=== PATIENT | female | born 1975 | race Hispanic/Latino ===

== ENCOUNTER 2016-12-01 01:38 | Emergency (ER) | payer OTHER ==
[2016-12-01] MEDS ORDERED: Albuterol-Ipratrop 3 mg / 0.5 (3 ml) UD IH STA ×2 (03:03→03:04)
[2016-12-01 03:04] VITALS: O2SAT 98
[2016-12-01] MEDS ORDERED: Albuterol-Ipratrop 3 mg / 0.5 (3 ml) UD ONE (03:07)
--- NOTE | 2016-12-01 03:07 | ED PDOC ---
HPI: CCC, URI, Sore Throat Time Seen by Provider: 12/01/16 02:51 Chief Complaint (Nursing): Fever Chief Complaint (Provider): fever History Per: Patient History/Exam Limitations: no limitations Onset/Duration Of Symptoms: Days (2) Location Of Pain: Ear(s), Throat Associated Symptoms: Fever, Sore Throat, Cough Ear Symptoms: Right: Ear Pain Additional History Per: Patient Additional Complaint(s): 40 y/o female presents with fever, tmax 104, x 2 days. Associated nonproductive cough, sore throat, right ear pressure. Patient notes cough becoming more persistent, now with post-tussive vomiting. Past Medical History Reviewed: Historical Data, Nursing Documentation, Vital Signs Vital Signs: Last Vital Signs Temp 99.1 F 12/01/16 05:06 Pulse 97 H 12/01/16 05:06 Resp 21 12/01/16 05:06 BP 106/70 12/01/16 05:06 Pulse Ox 98 12/01/16 05:06 - Medical History PMH: Anemia, Anxiety, Back Problems (muscle spasms), Depression, Gastritis Denies: Chronic Kidney Disease - Family History Family History: States: Unknown Family Hx - Living Arrangements Living Arrangements: With Family - Social History Current smoker - smoking cessation education provided: Yes Alcohol: None Drugs: Denies - Home Medications Home Medications: Ambulatory Orders Medication Instructions Recorded DiphenhydrAMINE [Benadryl] 25 mg PO TID #30 cap 01/02/16 Hydrocortisone 2.5% 1 applic EXT BID #1 oint 01/02/16 Ibuprofen [Motrin Tab] 600 mg PO TID #30 tab 01/02/16 Albuterol HFA [Ventolin HFA 90 1 puff IH Q4 PRN #1 inh 12/01/16 mcg/actuation (8 g)] Azithromycin [Zithromax] 250 mg PO DAILY #4 tab 12/01/16 Promethazine HCl/Codeine 5 ml PO Q8 PRN #100 ml 12/01/16 [Prometh-Codein 6.25-10 mg/5 ml] - Allergies Allergies/Adverse Reactions: Allergies Allergy/AdvReac Type Severity Reaction Status Date / Time Penicillins Allergy REDNESS Verified 12/01/16 02:52 barbecue sauce Allergy RASH Uncoded 12/01/16 02:52 tuna pasta salad Allergy RASH Uncoded 12/01/16 02:52 Review of Systems ROS Statement: Except As Marked, All Systems Reviewed And Found Negative Constitutional: Positive for: Fever ENT: Positive for: Ear Pain, Throat Pain Respiratory: Positive for: Cough Physical Exam - Reviewed Nursing Documentation Reviewed: Yes Vital Signs Reviewed: Yes - Physical Exam Appears: Positive for: Well, Non-toxic, No Acute Distress Head Exam: Positive for: ATRAUMATIC, NORMAL INSPECTION, NORMOCEPHALIC Skin: Positive for: Normal Color Eye Exam: Positive for: Normal appearance ENT: Positive for: Pharyngeal Erythema Cardiovascular/Chest: Positive for: Regular Rate, Rhythm Respiratory: Positive for: Normal Breath Sounds Gastrointestinal/Abdominal: Positive for: Normal Exam Extremity: Positive for: Normal ROM Neurologic/Psych: Positive for: Alert, Oriented - ECG O2 Sat by Pulse Oximetry: 98 Pulse Ox Interpretation: Normal - Radiology X-Ray: Viewed By Ne X-Ray Interpretation: Infiltrates (rll) - Progress ED Course And Treament: flu, strep, chest xray, duonebs Patient educated on findings, Zithromax dose and Promethazine codeine dose given in ED. Patient discharged with rx zithromax, promethazine with codeine, albuterol. Advised to continue tylenol/ibuprofen PRN fever. Rest. Fluids. Follow up PMD 2-3 days. Return to ED for worsening/concerning symptoms. Disposition - Clinical Impression Clinical Impression: Pneumonia - Patient ED Disposition Is Patient to be Admitted: No Counseled Patient/Family Regarding: Studies Performed, Diagnosis, Need For Followup, Rx Given - Disposition Disposition: Routine/Home Disposition Time: 04:48 Condition: IMPROVED Additional Instructions: Follow up with primary doctor in 2-3 days. Take medication as directed. Take Tylenol/Ibuprofen as directed, as needed for fever. Drink plenty of fluids. Rest. Return to ED for worsening/concerning symptoms. Prescriptions: Albuterol HFA [Ventolin HFA 90 mcg/actuation (8 g)] 1 puff IH Q4 PRN #1 inh PRN Reason: Wheezing Azithromycin [Zithromax] 250 mg PO DAILY #4 tab Promethazine HCl/Codeine [Prometh-Codein 6.25-10 mg/5 ml] 5 ml PO Q8 PRN #100 ml PRN Reason: Cough Instructions: Community Acquired Pneumonia (ED)
[2016-12-01] MEDS ORDERED: Promethazine/Cod 6.25mg-10mg/5ml Syr UD PO STA (04:34)
[2016-12-01 05:07] VITALS: BP 106/70; PULSE 97; RESP 21; TEMP 99.1
--- NOTE | 2016-12-01 08:39 | RAD ---
HISTORY: fever, cough COMPARISON: 12/30/2015 TECHNIQUE: Chest PA and lateral FINDINGS: LUNGS: New right basilar opacity. In the lateral view, it is not clearly identifiable. Nevertheless, this most likely represents a lower lobe infiltrate. Followup is advised. No other abnormal pulmonary opacity. PLEURA: No significant pleural effusion identified. No pneumothorax apparent. CARDIOVASCULAR: Normal. OSSEOUS STRUCTURES: No significant abnormalities. VISUALIZED UPPER ABDOMEN: Normal. OTHER FINDINGS: None. IMPRESSION: Right basilar infiltrate. Followup advised.
== END 2016-12-01 05:31 | disposition home or self-care (01) ==
LOC: H.ER 01:38
DX: J18.9 Pneumonia, unspecified organism (principal); F32.9 Major depressive disorder, single episode, unspecified; F41.9 Anxiety disorder, unspecified; Z88.0 Allergy status to penicillin

== ENCOUNTER 2017-09-20 18:32 | Emergency (ER) | payer MEDICAID, OTHER ==
[2017-09-20 20:06] VITALS: BP 127/80; PULSE 78; RESP 17; TEMP 98.6; O2SAT 100
[2017-09-20] MEDS ORDERED: Oxycodone/Acetaminophen 5/325 mg Tab PO STA (20:39)
[2017-09-20] MEDS ORDERED: Oxycodone/Acetaminophen 5/325 mg Tab ONE (20:43)
--- NOTE | 2017-09-20 20:46 | ED PDOC ---
Lower Extremity Pain/Injury Time Seen by Provider: 09/20/17 20:09 Chief Complaint (Nursing): Lower Extremity Problem/Injury Chief Complaint (Provider): Right Ankle Pain History Per: Patient History/Exam Limitations: no limitations Onset/Duration Of Symptoms: Hrs (earlier this evening) Current Symptoms Are (Timing): Still Present Additional Complaint(s): 41 year old female presents to the ED for evaluation of right ankle pain. Patient reports that earlier this evening, she was walking down the stairs when all of a sudden she felt a cracking pain to her right ankle below the lateral malleolus. She notes atraumatic swelling at this time, and has not been taking anything for pain. PMD: Kate Vasquez Past Medical History Reviewed: Historical Data, Nursing Documentation, Vital Signs Vital Signs: Last Vital Signs Temp 98.6 F 09/20/17 20:02 Pulse 78 09/20/17 20:02 Resp 17 09/20/17 20:02 BP 127/80 09/20/17 20:02 Pulse Ox 100 09/20/17 20:02 - Medical History PMH: Anemia, Anxiety, Back Problems (muscle spasms), Depression, Gastritis Denies: Chronic Kidney Disease - Surgical History Other surgeries: tubal ligation - Family History Family History: States: Unknown Family Hx - Social History Current smoker - smoking cessation education provided: Yes Alcohol: None Drugs: Denies - Home Medications Home Medications: Ambulatory Orders Medication Instructions Recorded DiphenhydrAMINE [Benadryl] 25 mg PO TID #30 cap 01/02/16 Hydrocortisone 2.5% 1 applic EXT BID #1 oint 01/02/16 Ibuprofen [Motrin Tab] 600 mg PO TID #30 tab 01/02/16 Albuterol HFA [Ventolin HFA 90 1 puff IH Q4 PRN #1 inh 12/01/16 mcg/actuation (8 g)] Azithromycin [Zithromax] 250 mg PO DAILY #4 tab 12/01/16 Promethazine HCl/Codeine 5 ml PO Q8 PRN #100 ml 12/01/16 [Prometh-Codein 6.25-10 mg/5 ml] Ibuprofen [Motrin] 600 mg PO Q6 #20 tab 09/20/17 - Allergies Allergies/Adverse Reactions: Allergies Allergy/AdvReac Type Severity Reaction Status Date / Time Penicillins Allergy REDNESS Verified 10/19/17 02:52 barbecue sauce Allergy RASH Uncoded 12/01/16 02:52 tuna pasta salad Allergy RASH Uncoded 12/01/16 02:52 Review of Systems ROS Statement: Except As Marked, All Systems Reviewed And Found Negative Musculoskeletal: Positive for: Foot Pain (right ankle, atraumatic below lateral malleolus) Physical Exam - Reviewed Nursing Documentation Reviewed: Yes Vital Signs Reviewed: Yes - Physical Exam Appears: Positive for: No Acute Distress Head Exam: Positive for: ATRAUMATIC Skin: Positive for: Normal Color, Warm, Dry Cardiovascular/Chest: Positive for: Regular Rate, Rhythm. Negative for: Murmur Respiratory: Positive for: Normal Breath Sounds. Negative for: Accessory Muscle Use, Respiratory Distress Pulses-Dorsalis Pedis (R): 2+ Extremity: Positive for: Normal ROM (to right LE), Tenderness (right LE below lateral malleolus), Other (distal sensations intact) Neurologic/Psych: Positive for: Oriented (x3). Negative for: Motor/Sensory Deficits - ECG O2 Sat by Pulse Oximetry: 100 (RA) Pulse Ox Interpretation: Normal Medical Decision Making Medical Decision Making: Time: 2038 Initial Impression: ankle pain Initial Plan: --Motrin 600 mg PO --Right ankle XR XR: NAD, as read by SANDY Pt educated on results and demonstrated full understanding Steve wrap and air cast applied. Pt instructed on crutch training. RICE therapy advised Scribe Attestation: Documented by Cecille Diane, acting as a scribe for Beverly Bergman PA-C. Provider Scribe Attestation: All medical record entries made by the Scribe were at my direction and personally dictated by me. I have reviewed the chart and agree that the record accurately reflects my personal performance of the history, physical exam, medical decision making, and the department course for this patient. I have also personally directed, reviewed, and agree with the discharge instructions and disposition. Disposition - Clinical Impression Clinical Impression: Ankle pain - Patient ED Disposition Is Patient to be Admitted: No - Disposition Referrals: Podiatry Clinic [Outside] Disposition Time: 23:28 Condition: STABLE Prescriptions: Ibuprofen [Motrin] 600 mg PO Q6 #20 tab Instructions: Ankle Sprain Forms: [employer] (Thai), [facility] ED School/Work Excuse
--- NOTE | 2017-09-21 09:22 | RAD ---
Date of service: 09/20/2017 PROCEDURE: Right Ankle Radiographs. HISTORY: Pain, atruamtic COMPARISON: None FINDINGS: BONES: Bone alignment and mineralization are normal. There is no acute displaced fracture or bone destruction. There is a small dorsal calcaneal enthesophyte. JOINTS: Normal. No osteoarthritis. Ankle mortise maintained. Talar dome intact SOFT TISSUES: There is mild lateral soft tissue swelling. OTHER FINDINGS: None. IMPRESSION: No acute fracture or dislocation. Mild lateral soft tissue swelling.
== END 2017-09-20 22:30 | disposition home or self-care (01) ==
LOC: H.ER 18:32
DX: M25.571 Pain in right ankle and joints of right foot (principal)

== ENCOUNTER 2017-10-05 17:49 | Emergency (ER) | payer OTHER ==
[2017-10-05 17:56] VITALS: O2SAT 98
--- NOTE | 2017-10-05 18:14 | ED PDOC ---
Upper Extremity Pain/Injury Time Seen by Provider: 10/05/17 18:02 Chief Complaint (Nursing): Upper Extremity Problem/Injury Chief Complaint (Provider): right shoulder injury History Per: Patient History/Exam Limitations: no limitations Onset/Duration Of Symptoms: Hrs Additional Complaint(s): 41 y/o right hand dominant female presents with pain too right shoulder s/o throwing a football and feeling pop in shoulder region. Injury occurred this afternoon and patient is now unable to lift up her right arm. She did not take anything for pain relief prior to arrival. PMD: Dr. Dixon Past Medical History Reviewed: Historical Data Vital Signs: Last Vital Signs Temp 98.4 F 10/05/17 17:58 Pulse 84 10/05/17 17:58 Resp 18 10/05/17 17:58 BP 130/93 H 10/05/17 17:58 Pulse Ox 98 10/05/17 17:58 - Medical History PMH: Anemia, Anxiety, Back Problems, Depression, Gastritis - Family History Family History: States: No Known Family Hx - Living Arrangements Living Arrangements: With Family - Social History Current smoker - smoking cessation education provided: Yes Alcohol: None Drugs: Denies - Home Medications Home Medications: Ambulatory Orders Medication Instructions Recorded DiphenhydrAMINE [Benadryl] 25 mg PO TID #30 cap 01/02/16 Hydrocortisone 2.5% 1 applic EXT BID #1 oint 01/02/16 Ibuprofen [Motrin Tab] 600 mg PO TID #30 tab 01/02/16 Albuterol HFA [Ventolin HFA 90 1 puff IH Q4 PRN #1 inh 12/01/16 mcg/actuation (8 g)] Azithromycin [Zithromax] 250 mg PO DAILY #4 tab 12/01/16 Promethazine HCl/Codeine 5 ml PO Q8 PRN #100 ml 12/01/16 [Prometh-Codein 6.25-10 mg/5 ml] Ibuprofen [Motrin] 600 mg PO Q6 #20 tab 09/20/17 - Allergies Allergies/Adverse Reactions: Allergies Allergy/AdvReac Type Severity Reaction Status Date / Time acetaminophen [From Percocet] Allergy HEADACHE Verified 10/05/17 17:58 oxycodone [From Percocet] Allergy HEADACHE Verified 10/05/17 17:58 Penicillins Allergy REDNESS Verified 12/01/16 02:52 barbecue sauce Allergy RASH Uncoded 12/01/16 02:52 tuna pasta salad Allergy RASH Uncoded 12/01/16 02:52 Review of Systems ROS Statement: Except As Marked, All Systems Reviewed And Found Negative Musculoskeletal: Positive for: Shoulder Pain (right) Physical Exam - Reviewed Nursing Documentation Reviewed: Yes Vital Signs Reviewed: Yes - Physical Exam Appears: Positive for: Well, Non-toxic, No Acute Distress Head Exam: Positive for: ATRAUMATIC, NORMOCEPHALIC Skin: Positive for: Normal Color Eye Exam: Positive for: EOMI, Normal appearance, PERRL Neck: Positive for: Normal, Painless ROM, Supple Back: Positive for: Decreased ROM, Other (diffuse tenderness in the overlying scapula region) Extremity: Positive for: Other (Tenderness overlying right scapula and anterior aspect of right shoulder with decreased range of motion, no obvious bony deformity, strong right handgrip) Neurologic/Psych: Positive for: Alert, Oriented. Negative for: Motor/Sensory Deficits - Laboratory Results Urine POC: Negative - ECG O2 Sat by Pulse Oximetry: 98 (RA) Pulse Ox Interpretation: Normal - Other Rad Right shoulder x-ray X-Ray: Interpreted by Me, Viewed By Me X-Ray Interpretation: no fx, no dis Medical Decision Making Medical Decision Making: Time: 18:11 Impression: Patient is a 41 y/o female with right shoulder pain Initial Plan: --Urine --Toradol 30 mg IM --RAD - Right shoulder Patient is aware of x-ray results. She reports improvement pain after Toradol given. Patient has Motrin and Flexeril at home that she will take for pain. Sling was applied. Patient advised to follow-up with orthopedist on-call. ~ Scribe Attestation: Documented by Claudy Roberto, acting as a scribe for Beverly Berry PA-C Provider Scribe Attestation: All medical record entries made by the Scribe were at my direction and personally dictated by me. I have reviewed the chart and agree that the record accurately reflects my personal performance of the history, physical exam, medical decision making, and the department course for this patient. I have also personally directed, reviewed, and agree with the discharge instructions and disposition. Procedures - Splinting Location: right shoulder Pre-Made Type: sling Pre-Proc Neuro Vasc Exam: normal Post-Proc Neuro Vasc Exam: normal Disposition - Clinical Impression Clinical Impression: Right shoulder strain - Patient ED Disposition Is Patient to be Admitted: No Counseled Patient/Family Regarding: Studies Performed, Diagnosis, Need For Followup - Disposition Referrals: Dvaon Morrow III, MD [Staff Provider] - Disposition: Routine/Home Disposition Time: 18:45 Condition: STABLE Additional Instructions: Ice, rest and elevate affected area. Take Motrin and Flexeril as needed for pain. Follow-up with orthopedist for any persistent symptoms. Instructions: Shoulder Sprain, Active Range of Motion Exercises, Neck and Shoulders, Stretching Exercises for Your Upper Body Forms: [employer] (Icelandic), [facility] ED School/Work Excuse
--- NOTE | 2017-10-05 18:43 | RAD ---
PROCEDURE: Radiographs of the Right Shoulder HISTORY: trauma COMPARISON: Images from right shoulder radiographs performed 12/28/10 FINDINGS: BONES: No acute displaced fracture. The distal clavicle and underlying ribs appear intact. JOINTS: No acute dislocation. SOFT TISSUES: Soft tissues appear unremarkable. No evidence of radiopaque foreign body. IMPRESSION: No acute displaced fracture or dislocation evident. If symptoms persist or if there is continued clinical concern, x-ray follow-up in 7-10 days should be considered.
[2017-10-05 18:59] VITALS: BP 135/91; PULSE 71; RESP 16; TEMP 97.9
== END 2017-10-05 18:59 | disposition home or self-care (01) ==
LOC: H.ER 17:49
DX: S46.911A Strain of unspecified muscle, fascia and tendon at shoulder and upper arm level, right arm, initial encounter (principal); X50.9XXA Other and unspecified overexertion or strenuous movements or postures, initial encounter; Y92.321 Football field as the place of occurrence of the external cause; Z88.0 Allergy status to penicillin; Z88.5 Allergy status to narcotic agent
CPT/HCPCS: 73030; 81025; 96372; 99283; J1885

== ENCOUNTER 2017-11-07 12:04 | Emergency (ER) | payer OTHER ==
[2017-11-07] MEDS ORDERED: DiphenhydrAMINE 50 mg/ml Inj ONE (12:27)
[2017-11-07 15:28] LABS: HEMOGLOBIN 15.2 g/dL (12.0-16.0); MEAN CELL VOLUME 87.5 fl (81.0-99.0); MEAN CORPUSCULAR HEMOGLOBIN 29.8 pg (27.0-31.0); MEAN CORPUSCULAR HGB CONC 34.1 g/dL (33.0-37.0); RBC 5.11 Mil/uL (3.80-5.20); WHITE BLOOD COUNT 9.5 K/uL (4.8-10.8)
[2017-11-07 15:59] LABS: ALB/GLOB RATIO 1.3 (1.0-2.1); ALBUMIN 4.3 g/dL (3.5-5.0); ALT/SGPT 22 U/L (9-52); AST/SGOT 27 U/L (14-36); BLOOD UREA NITROGEN 7 mg/dl (7-17); CALCIUM 9.4 mg/dL (8.4-10.2); GFR NON-AFRICAN AMERICAN > 60
[2017-11-07 16:43] LABS: URINE BILIRUBIN NEGATIVE (NEGATIVE); URINE CLARITY SLIGHT-CLOUDY (Clear); URINE COLOR YELLOW (YELLOW); URINE GLUCOSE (UA) NEGATIVE (Normal)
[2017-11-07 16:44] LABS: URINE BLOOD NEGATIVE (NEGATIVE); URINE LEUKOCYTE ESTERASE TRACE Leu/uL (Negative); URINE PROTEIN NEGATIVE (NEGATIVE); URINE UROBILINOGEN 0.2-1.0 mg/dL (0.2-1.0)
[2017-11-07 16:45] LABS: SQUAMOUS EPITHIAL 5 /hpf (0-5)
[2017-11-07 16:46] LABS: URINE BACTERIA RARE (<OCC)
== END 2017-11-07 16:46 | disposition home or self-care (01) ==
LOC: H.ER 12:04 → H.EDDOWN 12:04 → H.ER 16:46
DX: T36.8X5A Adverse effect of other systemic antibiotics, initial encounter (principal)

== ENCOUNTER 2017-12-08 09:34 | Day surgery (SDC) | payer OTHER ==
[2017-12-04 09:14] VITALS: BMI 36.1
[2017-12-08] MEDS ORDERED: Lactated Ringer's 1,000 ML IV ONE (10:13)
[2017-12-08 10:28] LABS: HEMOGLOBIN 15.3 g/dL (12.0-16.0); MEAN CELL VOLUME 86.7 fl (81.0-99.0); MEAN CORPUSCULAR HEMOGLOBIN 29.3 pg (27.0-31.0); MEAN CORPUSCULAR HGB CONC 33.8 g/dL (33.0-37.0); RBC 5.22 Mil/uL (3.80-5.20); RED CELL DISTRIBUTION WIDTH 14.1 % (11.5-14.5); WHITE BLOOD COUNT 7.1 K/uL (4.8-10.8)
--- NOTE | 2017-12-08 10:34 | CP.SDSHP ---
Same Day Surgery H & P - History Proposed Procedure: laparoscopy possible ovarian cystectomy Pre-Op Diagnosis: pelvic pain Ovarian cyst by sono - Previous Medical/Surgical History Neuro: Other Pain: 4.Moderate Pain Comments: hx of anxiety chronic back pain and degenerative disc disease Previous Surgical History: TOP x3; BTL; GSV closure both legs - Allergies Allergies: Allergies acetaminophen [From Percocet] Allergy (Verified 10/05/17 17:58) HEADACHE ciprofloxacin [From Cipro] Allergy (Verified 12/04/17 09:14) RASH oxycodone [From Percocet] Allergy (Verified 10/05/17 17:58) HEADACHE Penicillins Allergy (Verified 12/01/16 02:52) REDNESS barbecue sauce Allergy (Uncoded 12/01/16 02:52) RASH tuna pasta salad Allergy (Uncoded 12/01/16 02:52) RASH - Physical Exam General Appearance: well nourished Vital Signs: Vital Signs 12/08/17 12/08/17 10:06 10:09 Temperature 98 F Pulse Rate 64 64 Respiratory 20 Rate Blood Pressure 130/71 O2 Sat by Pulse 98 Oximetry Mental Status: Alert & Oriented x3 Heart: WNL Lungs: WNL Social History: Smoking - {Optional Preform as Required} Abdomen: WNL 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
[2017-12-08] MEDS ORDERED: ePHEDrine 50 mg/ml Inj ONE (13:16)
[2017-12-08] MEDS ORDERED: Propofol 10 mg/ml Inj (20 ML) ONE (13:16)
[2017-12-08] MEDS ORDERED: Midazolam 2 MG/2 ML VIAL ONE (13:17)
[2017-12-08] MEDS ORDERED: Succinylcholine 200 mg/10 ml Inj IV ONE (13:17)
[2017-12-08] MEDS ORDERED: Rocuronium 10 mg/ml (5 ml) ONE (13:17)
[2017-12-08] MEDS ORDERED: Dexamethasone 4 mg/1 ml ONE (14:06)
[2017-12-08] MEDS ORDERED: Neostigmine 1:1000 (1 mg/ml) Inj ONE (14:32)
[2017-12-08] MEDS ORDERED: Dexamethasone 4 mg/1 ml IVP PRN (15:23)
[2017-12-08] MEDS ORDERED: HYDROmorphone 0.5 mg/0.5 ml ISec ONE (15:28)
[2017-12-08] MEDS ORDERED: DiphenhydrAMINE 50 mg/ml Inj IVP ONE ×2 (16:40→16:44)
[2017-12-08 17:33] VITALS: RESP 18
[2017-12-08 18:33] VITALS: TEMP 98.4
--- NOTE | 2017-12-08 18:54 | CP.SDSHP ---
Same Day Surgery H & P - Allergies Allergies: Allergies acetaminophen [From Percocet] Allergy (Verified 10/05/17 17:58) HEADACHE ciprofloxacin [From Cipro] Allergy (Verified 12/04/17 09:14) RASH oxycodone [From Percocet] Allergy (Verified 10/05/17 17:58) HEADACHE Penicillins Allergy (Verified 12/01/16 02:52) REDNESS barbecue sauce Allergy (Uncoded 12/01/16 02:52) RASH tuna pasta salad Allergy (Uncoded 12/01/16 02:52) RASH - Physical Exam Vital Signs: Vital Signs 12/08/17 12/08/17 12/08/17 15:17 15:30 15:45 Temperature 97.6 F 97.2 F L 97.9 F Pulse Rate 71 69 66 Respiratory 16 16 19 Rate Blood Pressure 130/81 121/70 112/88 O2 Sat by Pulse 100 100 100 Oximetry 12/08/17 12/08/17 12/08/17 16:00 16:15 16:30 Temperature 98.0 F 98.2 F Pulse Rate 67 69 73 Respiratory 19 19 19 Rate Blood Pressure 127/84 125/73 114/78 O2 Sat by Pulse 100 98 98 Oximetry 12/08/17 12/08/17 12/08/17 16:45 17:00 17:20 Temperature 98.3 F 98.6 F 98.6 F Pulse Rate 70 73 64 Respiratory 19 19 18 Rate Blood Pressure 127/71 122/71 116/68 O2 Sat by Pulse 97 99 98 Oximetry 12/08/17 12/08/17 17:32 18:20 Temperature 98.4 F Pulse Rate 76 Respiratory 18 Rate Blood Pressure 115/79 O2 Sat by Pulse 98 97 Oximetry Short Stay Discharge - Short Stay Discharge Admitting Diagnosis/Reason for Visit: R10.2, N83.209 Referrals: Kate Vasquez MD [Primary Care Provider] - Follow-up: 1-2 wks Additional Instructions (Diet, Activity): Pelvic and bed rest and will follow in office 1-2 wks Progress Note/Discharge Note with Instructions: Tolerated procedure well and recovered well no operative complications Discussed findings with pt and given instructions given Rx for Tramadol 50mg q 6 hrs given #30 tabs
[2017-12-08 19:31] VITALS: BP 123/74; PULSE 77; O2SAT 98
--- NOTE | 2017-12-09 23:38 | OP ---
PROCEDURE DATE: 12/08/2017 PREOPERATIVE DIAGNOSES: 1. Pelvic pain. 2. Right ovarian cyst. POSTOPERATIVE DIAGNOSES: 1. Pelvic pain. 2. Bilateral ovarian cysts. 3. Fibroid uterus. PROCEDURE PERFORMED: Laparoscopy with bilateral ovarian cystectomy. SURGEON: Rolando Rodríguez MD CELL PLASTERER: Madan Kirby MD. Grant Manager needed in order to provide manipulation and assistance in the removal of cyst. Grant Manager present during the entire duration of the case. No surgical corsetier is available at this time. ANESTHESIA USED: General. ANESTHESIA ADMINISTERED BY: Airam Garcia MD. and Dr. Aguilera. ESTIMATED BLOOD LOSS: 50 mL. DRAINS USED: None. REPLACEMENT USED: None. FINDINGS: 1. Uterus appears anteverted, mobile, with a 3-cm anterior mid portion fibroid noted. 2. Cervix appears closed, long, posterior. No gross lesion to visualization. 3. Laparoscopy showed bilateral ovarian cysts, left one about 5 to 6 cm, appears clear, was aspirated of about 160 mL of yellowish fluid. Cystectomy performed without any complication using LigaSure apparatus. 4. Right ovarian cyst also noted, clear appearing, about 4 cm, aspirated of about 20 mL of clear fluid, and again cystectomy performed without any complications using LigaSure. DESCRIPTION OF PROCEDURE: The patient was taken to the operating room and placed on the operating table in a supine position. Following induction of general endotracheal anesthesia, the patient was then replaced in a dorsal lithotomy position. Perineal, genital, and abdominal areas were prepped and draped in the usual sterile manner. At this time, a King catheter was then introduced into the bladder and was draining clear fluid. Heavy weighted speculum was then placed in the posterior wall of vagina exposing the cervix. The anterior lip of the cervix was then visualized and grasped using a single-tooth tenaculum and retracted superiorly. Using Enzo dilators in an increasing size manner, the endocervical canal was then dilated, and a HUMI cannula was then introduced into the endometrial cavity in order to manipulate the uterus. Following this, a single-tooth tenaculum was then removed, no bleeding noted. Attention was then given to the abdomen. At the umbilicus, a Veress needle was then introduced into the abdomen, and about 5 L of carbon dioxide was then introduced into the abdomen thus creating a pneumoperitoneum. Following this, we then proceeded to make a 1-cm incision at the umbilicus and through this under direct visualization, a 10-mm trocar was introduced into the abdomen. Visualization of the area underneath the trocar insertion revealed no signs of trauma or bleeding . At this time, a large ovarian cyst noted to be present on the left side, appeared to be about 5 to 6 cm. At this time, we then introduced a 5-mm trocar in the left lower quadrant under direct visualization. On the right lower quadrant, a 10 to 11 mm trocar was then introduced also under direct visualization without any complications. At this time, the large 5 to 6-cm cyst was aspirated under direct visualization of about 160 mL of yellowish fluid. Using a LigaSure apparatus, the collapsed cyst was then removed. Cystectomy was then performed under direct visualization. Cyst wall was removed and sent to Pathology for proper pathological evaluation. No bleeding noted. At the same time, a left 4-cm cyst noted to be present which appears to have clear fluid, again was aspirated of about 20 to 30 mL of clear fluid. The collapsed cyst wall was then removed using LigaSure apparatus again, and specimen sent to Pathology for proper pathological evaluation. The pelvic cavity was then copiously irrigated using saline solution. Irrigation was then removed. No bleeding noted from the site. An Interceed was then placed covering both cystectomy areas in order to provide adhesions from not forming in the future. All operative areas were checked, hemostatically secured. A 3-cm anterior fibroid was noted to be present in the mid anterior section of the uterus. Again, all operative areas were checked, hemostatically secured. Pneumoperitoneum was then partially evacuated. The 5-mm trocar in the left lower quadrant and the 10-mm trocar in the right lower quadrant were then removed under direct visualization. No bleeding noted. Then, the pneumoperitoneum was then evacuated further, and the 10-mm trocar from the umbilicus was then removed under direct visualization. A 0 Vicryl suture was then placed in the fascia of the umbilicus and the right lower quadrant. The skin was then approximated using a Monocryl. Dermabond was applied. HUMI cannula was removed. No bleeding noted. The patient tolerated the procedure well. There were no complications. She was transferred to the recovery room in satisfactory condition. Rolando Rodríguez MD [facility] # [id number]
== END 2017-12-08 20:00 | disposition home or self-care (01) ==
LOC: H.OPSURG 09:34
PROVIDERS: ATTEND Specialist
DX: D25.9 Leiomyoma of uterus, unspecified (principal); R10.2 Pelvic and perineal pain; N83.202 Unspecified ovarian cyst, left side; N83.201 Unspecified ovarian cyst, right side
CPT/HCPCS: 36415; 58662; 85027; 86850; 86900; 88104; 88305; J0330; J1100; J1170; J1200; J1885; J2001; J2250; J2405; J2704; J2710; J3010; J7030; J7120